=== PATIENT | female | born 1990 | race American Indian/Alaskan Native ===

== ENCOUNTER 2018-12-03 15:09 | Emergency (ER) | payer OTHER, MEDICAID ==
[2018-12-03 15:32] VITALS: BP 143/74
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
== END 2018-12-03 18:04 | disposition home or self-care (01) ==
LOC: ED 15:09
DX: Z04.1 Encounter for examination and observation following transport accident (principal); V89.2XXA Person injured in unspecified motor-vehicle accident, traffic, initial encounter; Y93.89 Activity, other specified; Y92.488 Other paved roadways as the place of occurrence of the external cause; Y99.8 Other external cause status
CPT/HCPCS: 99282